=== PATIENT | male | born 1955 | race Hispanic/Latino ===

== ENCOUNTER 2018-03-25 09:43 | Inpatient (IN) | payer BC ==
[2018-03-25] MEDS ORDERED: Sodium Chloride 0.9% 1,000 ML IV ONE (11:01)
[2018-03-25 11:26] LABS: BASO % 0.4 % (0.0-2.0); EOS % 0.3 % (0.0-4.0); HEMOGLOBIN 11.9 g/dL (12.0-18.0); LYMPH % 17.3 % (20.0-40.0); MEAN CELL VOLUME 84.7 fL (80.0-94.0); MEAN CORPUSCULAR HEMOGLOBIN 30.6 pg (27.0-31.0); MEAN CORPUSCULAR HGB CONC 36.1 g/dL (33.0-37.0); MEAN PLATELET VOLUME 7.8 fL (7.2-11.7); MONO # 0.5 K/uL (0.0-0.8); MONO % 7.6 % (0.0-10.0); NEUT # 4.5 K/uL (1.8-7.0); NEUT % 74.4 % (50.0-75.0); NRBC % 0.1 % (0.0-2.0); RBC 3.89 Mil/uL (4.40-5.90); RED CELL DISTRIBUTION WIDTH 12.8 % (11.5-14.5)
[2018-03-25 11:32] LABS: ALB/GLOB RATIO 1.2 (1.0-2.1); ALBUMIN 3.7 g/dL (3.5-5.0); ALT/SGPT 22 U/L (21-72); AST/SGOT 19 U/L (17-59); BLOOD UREA NITROGEN 18 mg/dL (9-20); CALCIUM 8.8 mg/dl (8.6-10.4); GFR AFRICAN-AMERICAN > 60; GFR NON-AFRICAN AMERICAN > 60; LIPASE 16 U/L (23-300)
[2018-03-25 11:41] LABS: B-TYPE NATRIURETIC PEPTIDE 427 pg/mL (0-900)
[2018-03-25] MEDS ORDERED: Sodium Chloride 0.9% 1,000 ML ONE (11:57)
--- NOTE | 2018-03-25 12:02 | C.PDOC ---
History Of Present Illness 62-year-old male, presents to the emergency department accompanied by with complaints of feeling light-headed, generalized weakness, nausea and non-bloody/ watery diarrhea. Patient notes symptoms have been ongoing for one week. States he had a fever three days ago which has now resolved. Patient denies vomiting, back pain, chest pain, shortness of breath, loss of consciousness or any other associated symptoms. No other complaints at this time. Time Seen by Provider: 03/25/18 10:40 Chief Complaint (Nursing): Dizziness/Lightheaded History Per: Patient History/Exam Limitations: no limitations Onset/Duration Of Symptoms: Days Current Symptoms Are (Timing): Still Present Severity: Moderate Past Medical History Reviewed: Historical Data, Nursing Documentation, Vital Signs Vital Signs: Last Vital Signs Temp 98.2 F 03/25/18 16:27 Pulse 84 03/25/18 16:27 Resp 20 03/25/18 16:27 BP 123/74 03/25/18 16:27 Pulse Ox 100 03/25/18 16:42 Surgical History: Denies: Pacemaker - [facility] Procedures CLOSURE SKIN & SUBCUTANEOUS NEC (03/08/02) Family History: States: No Known Family Hx - Social History Hx Tobacco Use: No Hx Alcohol Use: No Hx Substance Use: No - Immunization History Hx Tetanus Toxoid Vaccination: No Hx Influenza Vaccination: No Hx Pneumococcal Vaccination: No Review Of Systems Constitutional: Positive for: Weakness. Negative for: Fever, Chills Cardiovascular: Positive for: Light Headedness. Negative for: Chest Pain, Palpitations Respiratory: Negative for: Shortness of Breath Gastrointestinal: Positive for: Nausea, Diarrhea. Negative for: Vomiting, Abdominal Pain Musculoskeletal: Negative for: Back Pain Skin: Negative for: Rash Neurological: Negative for: Numbness, Headache Physical Exam - Physical Exam Appears: Non-toxic, Other (Dehydrated) Skin: Normal Color, Warm, Dry, No Rash Head: Atraumatic, Normacephalic Eye(s): bilateral: Normal Inspection Nose: Normal Oral Mucosa: Moist Lips: Normal Appearing Neck: Normal ROM Cardiovascular: Rhythm Regular, No Murmur Respiratory: Normal Breath Sounds, No Accessory Muscle Use Gastrointestinal/Abdominal: Bowel Sounds, Soft, No Tenderness, No Distention, No Guarding Extremity: Normal ROM, No Deformity, No Swelling Neurological/Psych: Oriented x3, Normal Speech Gait: Steady ED Course And Treatment - Laboratory Results Result Diagrams: 03/25/18 11:16 03/25/18 11:16 Lab Interpretation: No Acute Changes ECG: Interpreted By Me, Viewed By Me ECG Rhythm: Sinus Rhythm Rate From EC O2 Sat by Pulse Oximetry: 100 (RA) Pulse Ox Interpretation: Normal Medical Decision Making Medical Decision Making: Impression: dehydration, dizziness Plan: * Labs * IV NS Progress: Labs reviewed with no acute findings. Patient appears clinically dehydrated and is dizzy upon standing. [address] Reyes who wants orthostatic vital signs and call back with results Orthostatics reviewed Laying 117/74 pulse 77; Sitting 94/61 pulse 85; Standing 67/34 pulse 111 Patient went to restroom and had an episode of diarrhea with bright red blood. Rectal exam shows BRB, no tenderness or mass Call back Dr Reyes to discuss new findings and he agrees to admit patient. Disposition Counseled Patient/Family Regarding: Diagnosis, Need For Followup - Disposition Disposition: HOSPITALIZED Disposition Time: 12:40 Condition: STABLE - POA Present On Arrival: None - Clinical Impression Clinical Impression: Dehydration, Abdominal pain, Near syncope - Scribe Statement The provider has reviewed the documentation as recorded by the Scribe (Olivia Watson) All medical record entries made by the Scribe were at my direction and personally dictated by me. I have reviewed the chart and agree that the record accurately reflects my personal performance of the history, physical exam, medical decision making, and the department course for this patient. I have also personally directed, reviewed, and agree with the discharge instructions and disposition. Decision To Admit - Pt Status Changed To: Hospital Disposition Of: Inpatient - Admit Certification Admit to Inpatient:: After my assessment, the patient will require hospitalization for at least two midnights. This is because of the severity of symptoms shown, intensity of services needed, and/or the medical risk in this patient being treated as an outpatient. - InPatient: Physician Admission Certification: I certify that this patient requires 2 or more midnights of care for the following reason:: Patient is dehydrated and weak with dizziness and orthostatics positive. patient has history of colitis and also having bloody stools. - . Bed Request Type: Telemetry Admitting Physician: Hector Reyes Patient Diagnosis: Dehydration, Abdominal pain, Near syncope
--- NOTE | 2018-03-25 14:00 | RAD ---
PROCEDURE: Radiographs of the chest and abdomen (obstructive series) HISTORY: Abd Pain COMPARISON: No prior. TECHNIQUE: AP radiograph of the chest, with upright and supine radiographs of the abdomen. FINDINGS: CHEST: Lungs: Clear. Cardiovascular: Normal size heart. No pulmonary vascular congestion. Pleura: No pleural fluid. No pneumothorax. Other findings: None. ABDOMEN AND PELVIS: Bowel: Unremarkable bowel gas pattern. No evidence of mechanical obstruction. Free air: None. Bones: Unremarkable. Other findings: None. IMPRESSION: Unremarkable radiographs of chest and abdomen. No evidence of mechanical bowel obstruction.
[2018-03-25] MEDS: Sodium Chloride 0.9% 1,000 ML IV SCH (19:00)
[2018-03-25 20:33] LABS: URINE BILIRUBIN NEGATIVE (NEGATIVE); URINE BLOOD 2+ (NEGATIVE); URINE CLARITY Turbid (Clear); URINE COLOR Yellow (YELLOW); URINE GLUCOSE (UA) NORMAL (Normal); URINE LEUKOCYTE ESTERASE 2+ Leu/uL (Negative); URINE PROTEIN 2+ mg/dL (NEGATIVE); URINE UROBILINOGEN NORMAL mg/dL (0.2-1.0); WBC CLUMPS MANY /hpf
--- NOTE | 2018-03-25 21:48 | CP.PCM.HP ---
History of Present Illness - History of Present Illness History of Present Illness: Chief complaint: Syncopal attack. HPI: 62-year-old male with a history of ulcerative colitis, not taking his medications properly, adenocarcinoma of the prostate, and also severe orthostatic hypotension, and possible neuropathy, weight loss came to the emergency room with sudden onset of dizziness. Patient for the last 2-3 days not feeling well, he started having some weakness , especially upon standing up and walking and the dizziness. Patient went to work last night, and this morning he was not able to get out of the work he was feeling lightheaded, and nearly passing out. He called me this morning, and I advised him to come to the emergency room. In the emergency room patient was found to have frequent bowel movements, episodes of diarrhea, and also blood in the stools noted. He was also having mild discomfort in the lower abdominal region, no nausea vomiting. He has a good appetite. He denies any fever chills. He also having severe orthostatic hypotension noted in the emergency room. He denied any chest pain, no shortness of breath, no headache. No sore throat. No recent illness otherwise Patient was seen by neurologist for the orthostatic hypotension, diagnosed with the peripheral neuropathy, and also able to get immunoglobulin intravenously but still pending Past medical history: Ulcerative colitis, adenocarcinoma of the prostate, peripheral neuropathy orthostatic hypotension unclear etiology Allergy no known drug allergy Personal history: Non-smoker nonalcoholic Patient is working full-time , Mother had a history of liver cirrhosis Father had a history of lung cancer Review of system: 10 point review of system noted. No headache or visual symptoms. Dizziness noted, postural hypotension noted, chest pain negative, no shortness of breath, abdominal discomfort occasionally noted, recurrent blood in the stools noted and frequent bowel movements noted On examination: Vital signs stable. But severe orthostatic hypotension noted. Lying blood pressure systolic 110, standing systolic blood pressure is 70 Chest good air entry bilaterally regular heart sounds nontender abdominal pedal edema [employer] alert awake oriented 3 no functional neurological deficits Patient's labs reviewed Nonspecific Hemoglobin is 11.9 urinalysis showing evidence of 2+ protein, ketones positive, blood 2+, positive nitrates noted, WBC more than 28,000 with the LE positive many WBC clumps noted EKG showing evidence of a normal sinus rhythm, no ST-T changes noted No chest x-ray currently available No CAT scan of the abdomen available Assessment and recommendation: Patient is a 62-year-old male with a known history of ulcerative colitis, currently noncompliant with the medication came to the office with abdominal discomfort and also significant pyuria noted. Patient also having significant urinary discomfort. Blood in the stools noted. Rectal bleeding, possible underlying ulcerative colitis exacerbation. Urinary tract infection with severe sepsis cannot be ruled out Orthostatic hypotension secondary to worsening sepsis possible. Dehydration possible Peripheral neuropathy. We will start the patient on antibiotic Cipro and Flagyl, for possible urinary tract infection as well as colitis. Will get urine culture, and blood culture GI evaluation for possible colonoscopy Evaluation by neurology for orthostatic hypotension and polyneuropathy We will continue the IV fluid at this time, PPI. And will follow-up the patient Discussed with the family regarding the prognosis. Present on Admission - Present on Admission Any Indicators Present on Admission: No History of DVT/PE: No History of Uncontrolled Diabetes: No Urinary Catheter: No Decubitus Ulcer Present: No Past Patient History - Past Social History Smoking Status: Former Smoker - CARDIAC Hx Pacemaker: No - PULMONARY Hx Respiratory Disorders: No - NEUROLOGICAL Hx Neurological Disorder: No - HEENT Hx HEENT Problems: No - RENAL Hx Chronic Kidney Disease: No - ENDOCRINE/METABOLIC Hx Endocrine Disorders: No - HEMATOLOGICAL/ONCOLOGICAL Hx Blood Transfusions: No Hx Blood Transfusion Reaction: No - INTEGUMENTARY Hx Dermatological Problems: No - MUSCULOSKELETAL/RHEUMATOLOGICAL Hx Falls: No - GASTROINTESTINAL Hx Gastrointestinal Disorders: No - GENITOURINARY/GYNECOLOGICAL Hx Genitourinary Disorders: No - PSYCHIATRIC Hx Substance Use: No - SURGICAL HISTORY Hx Surgeries: Yes - ANESTHESIA Hx Anesthesia Reactions: Yes (vomitting) Hx Malignant Hyperthermia: No Has any member of the family had a problem w/ anesthesia?: No Meds Allergies/Adverse Reactions: Allergies Allergy/AdvReac Type Severity Reaction Status Date / Time codeine Allergy Intermediate SWEATING,FE Verified 03/25/18 09:49 VERISH,VOMI TING Results - Vital Signs Recent Vital Signs: Last Vital Signs Temp 98.2 F 03/25/18 16:27 Pulse 84 03/25/18 16:27 Resp 20 03/25/18 16:27 BP 123/74 03/25/18 16:27 Pulse Ox 100 03/25/18 17:39 - Labs Result Diagrams: 03/25/18 11:16 03/25/18 11:16 Labs: Laboratory Results - last 24 hr 03/25/18 03/25/18 03/25/18 11:16 11:16 20:12 WBC 6.0 RBC 3.89 L Hgb 11.9 L D Hct 33.0 L MCV 84.7 MCH 30.6 MCHC 36.1 RDW 12.8 Plt Count 228 MPV 7.8 Neut % (Auto) 74.4 Lymph % (Auto) 17.3 L [place] % (Auto) 7.6 Eos % (Auto) 0.3 Baso % (Auto) 0.4 Neut # (Auto) 4.5 Lymph # (Auto) 1.0 [place] # (Auto) 0.5 Eos # (Auto) 0.0 Baso # (Auto) 0.0 Sodium 141 Potassium 4.3 Chloride 100 Carbon Dioxide 29 Anion Gap 16 BUN 18 Creatinine 1.2 Est GFR ( Amer) > 60 Est GFR (Non-Af Amer) > 60 Random Glucose 89 Calcium 8.8 Total Bilirubin 0.9 AST 19 ALT 22 Alkaline Phosphatase 66 NT-Pro-B Natriuret Pep 427 Total Protein 6.8 Albumin 3.7 Globulin 3.0 Albumin/Globulin Ratio 1.2 Lipase 16 L Urine Color Yellow Urine Clarity Turbid Urine pH 5.0 Ur Specific [place] 1.023 Urine Protein 2+ H Urine Glucose (UA) Normal Urine Ketones 1+ H Urine Blood 2+ H Urine Nitrate Positive H Urine Bilirubin Negative Urine Urobilinogen Normal Ur Leukocyte Esterase 2+ H Urine WBC (Auto) 39571 H Urine RBC (Auto) 402 H Urine WBC Clumps (Auto) Many H
[2018-03-25] MEDS ORDERED: Ciprofloxacin 400mg/200ml D5W 400 MG/200 ML BAG IVPB SCH (22:00)
[2018-03-25 22:32] LABS: FREE T4 1.6 ng/dL (0.78-2.19)
[2018-03-25 23:14] LABS: FOLATE > 20.0 ng/mL
[2018-03-26] MEDS: metroNIDAZOLE IV 500 mg/100 ml 500 MG/100 ML BAG IVPB SCH ×4 (00:36→21:17)
[2018-03-26] MEDS: Sodium Chloride 0.9% 1,000 ML IV SCH ×3 (03:45→22:56)
--- NOTE | 2018-03-26 07:08 | CP.PCM.CON ---
History of Present Illness - History of Present Illness History of Present Illness: CONSULT DICTATED SEVERE PAINFUL SENSORY [employer]OR AND AUTON[employer]IC NEUROPATHY NUTRITIONAL DEF./PARANOPLASTIC/INFLAMATORY/ AUTOIMMUNE /?? INFECTIOUS FALL PRECAUTION HYDRATION /SALT DIET MRI/BLOOD WORK UP EMG/NCV AN OP THANKS Past Patient History - Past Social History Smoking Status: Former Smoker - CARDIAC Hx Pacemaker: No - PULMONARY Hx Respiratory Disorders: No - NEUROLOGICAL Hx Neurological Disorder: No - HEENT Hx HEENT Problems: No - RENAL Hx Chronic Kidney Disease: No - ENDOCRINE/METABOLIC Hx Endocrine Disorders: No - HEMATOLOGICAL/ONCOLOGICAL Hx Blood Transfusions: No Hx Blood Transfusion Reaction: No - INTEGUMENTARY Hx Dermatological Problems: No - MUSCULOSKELETAL/RHEUMATOLOGICAL Hx Falls: No - GASTROINTESTINAL Hx Gastrointestinal Disorders: No - GENITOURINARY/GYNECOLOGICAL Hx Genitourinary Disorders: No - PSYCHIATRIC Hx Substance Use: No - SURGICAL HISTORY Hx Surgeries: Yes - ANESTHESIA Hx Anesthesia Reactions: Yes (vomitting) Hx Malignant Hyperthermia: No Has any member of the family had a problem w/ anesthesia?: No Meds Allergies/Adverse Reactions: Allergies Allergy/AdvReac Type Severity Reaction Status Date / Time codeine Allergy Intermediate SWEATING,FE Verified 03/25/18 09:49 VERISH,VOMI TING - Medications Medications: Current Medications Sodium Chloride (Sodium Chloride 0.9%) 1,000 mls @ 100 mls/hr IV .Q10H [facility] Last Admin: 03/26/18 03:45 Dose: Not Given Ciprofloxacin (Cipro 400mg/200ml Dsw) 400 mg in 200 mls @ 133 mls/hr IVPB Q12H ANDRIY PRN Reason: Protocol Last Admin: 03/26/18 00:35 Dose: 133 mls/hr Metronidazole (Flagyl) 500 mg in 100 mls @ 100 mls/hr IVPB Q8 ANDRIY PRN Reason: Protocol Last Admin: 03/26/18 06:39 Dose: 100 mls/hr Pantoprazole Sodium (Protonix Inj) 40 mg IVP DAILY [facility] Results - Vital Signs Recent Vital Signs: Last Vital Signs Temp 98.1 F 03/26/18 04:42 Pulse 68 03/26/18 04:42 Resp 20 03/26/18 04:42 BP 115/72 03/26/18 04:42 Pulse Ox 98 03/26/18 04:42 - Labs Result Diagrams: 03/25/18 11:16 03/25/18 11:16 Labs: Laboratory Results - last 24 hr 03/25/18 03/25/18 03/25/18 11:16 11:16 20:12 WBC 6.0 RBC 3.89 L Hgb 11.9 L D Hct 33.0 L MCV 84.7 MCH 30.6 MCHC 36.1 RDW 12.8 Plt Count 228 MPV 7.8 Neut % (Auto) 74.4 Lymph % (Auto) 17.3 L [place] % (Auto) 7.6 Eos % (Auto) 0.3 Baso % (Auto) 0.4 Neut # (Auto) 4.5 Lymph # (Auto) 1.0 [place] # (Auto) 0.5 Eos # (Auto) 0.0 Baso # (Auto) 0.0 Sodium 141 Potassium 4.3 Chloride 100 Carbon Dioxide 29 Anion Gap 16 BUN 18 Creatinine 1.2 Est GFR ( Amer) > 60 Est GFR (Non-Af Amer) > 60 Random Glucose 89 Hemoglobin A1c Calcium 8.8 Total Bilirubin 0.9 AST 19 ALT 22 Alkaline Phosphatase 66 NT-Pro-B Natriuret Pep 427 Total Protein 6.8 Albumin 3.7 Globulin 3.0 Albumin/Globulin Ratio 1.2 Lipase 16 L Vitamin B12 Folate Free T4 TSH 3rd Generation Urine Color Yellow Urine Clarity Turbid Urine pH 5.0 Ur Specific [place] 1.023 Urine Protein 2+ H Urine Glucose (UA) Normal Urine Ketones 1+ H Urine Blood 2+ H Urine Nitrate Positive H Urine Bilirubin Negative Urine Urobilinogen Normal Ur Leukocyte Esterase 2+ H Urine WBC (Auto) 65699 H Urine RBC (Auto) 402 H Urine WBC Clumps (Auto) Many H 03/25/18 03/25/18 03/25/18 21:41 21:41 21:41 WBC RBC Hgb Hct MCV MCH MCHC RDW Plt Count MPV Neut % (Auto) Lymph % (Auto) [place] % (Auto) Eos % (Auto) Baso % (Auto) Neut # (Auto) Lymph # (Auto) [place] # (Auto) Eos # (Auto) Baso # (Auto) Sodium Potassium Chloride Carbon Dioxide Anion Gap BUN Creatinine Est GFR ( Amer) Est GFR (Non-Af Amer) Random Glucose Hemoglobin A1c 4.7 Calcium Total Bilirubin AST ALT Alkaline Phosphatase NT-Pro-B Natriuret Pep Total Protein Albumin Globulin Albumin/Globulin Ratio Lipase Vitamin B12 710 Folate > 20.0 Free T4 1.60 TSH 3rd Generation 1.40 Urine Color Urine Clarity Urine pH Ur Specific [place] Urine Protein Urine Glucose (UA) Urine Ketones Urine Blood Urine Nitrate Urine Bilirubin Urine Urobilinogen Ur Leukocyte Esterase Urine WBC (Auto) Urine RBC (Auto) Urine WBC Clumps (Auto)
[2018-03-26] MEDS ORDERED: Iohexol 240 (50 ml) PO ONE (08:00)
--- NOTE | 2018-03-26 13:45 | CP.PCM.CON ---
<Vignesh Bazan - Last Filed: 03/26/18 13:37> History of Present Illness - History of Present Illness History of Present Illness: Initial GI Consult Note - Alma Bazan PGY2 Patient is a 62yo male with past medical history of ulcerative colitis (non- compliant), Prostate Ca, orthostatic hypotension that presented [facility] with c/o weakness, lethargy and dizziness that started 3 days prior. He reports that he has also been having frequent bloody bowel movements with mild suprapubic abdominal pain however denies nausea/vomiting. Prior to this episode, he reports that he was in his usual state of health and had no blood in the stool. He denied recent antibiotic use, travel however admitted to exposure of sick customers at work. He otherwise has had good appetite with no fevers or chills. GI consulted for evaluation of GI bleed. 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, esophagitis, gastritis, duodenitis; Colonoscopy 12/27: Rectal, sigmoid and Descending colon bleeding and mucosal friability, pathology significant for IBD likely ulcerative colitis Past Patient History - Past Social History Smoking Status: Former Smoker - CARDIAC Hx Pacemaker: No - PULMONARY Hx Respiratory Disorders: No - NEUROLOGICAL Hx Neurological Disorder: No - HEENT Hx HEENT Problems: No - RENAL Hx Chronic Kidney Disease: No - ENDOCRINE/METABOLIC Hx Endocrine Disorders: No - HEMATOLOGICAL/ONCOLOGICAL Hx Blood Transfusions: No Hx Blood Transfusion Reaction: No - INTEGUMENTARY Hx Dermatological Problems: No - MUSCULOSKELETAL/RHEUMATOLOGICAL Hx Falls: No - GASTROINTESTINAL Hx Gastrointestinal Disorders: No - GENITOURINARY/GYNECOLOGICAL Hx Genitourinary Disorders: No - PSYCHIATRIC Hx Substance Use: No - SURGICAL HISTORY Hx Surgeries: Yes - ANESTHESIA Hx Anesthesia Reactions: Yes (vomitting) Hx Malignant Hyperthermia: No Has any member of the family had a problem w/ anesthesia?: No Meds Allergies/Adverse Reactions: Allergies Allergy/AdvReac Type Severity Reaction Status Date / Time codeine Allergy Intermediate SWEATING,FE Verified 03/25/18 09:49 VERISH,VOMI TING - Medications Medications: Current Medications Sodium Chloride (Sodium Chloride 0.9%) 1,000 mls @ 100 mls/hr IV .Q10H [facility] Last Admin: 03/26/18 03:45 Dose: Not Given Metronidazole (Flagyl) 500 mg in 100 mls @ 100 mls/hr IVPB Q8 ANDRIY PRN Reason: Protocol Last Admin: 03/26/18 06:39 Dose: 100 mls/hr Ciprofloxacin (Cipro 400mg/200ml Dsw) 400 mg in 200 mls @ 133 mls/hr IVPB Q12H ANDRIY PRN Reason: Protocol Mesalamine (Rowasa Enema) 4 gm RC TID [facility] Mesalamine (Delzicol Dr) 800 mg PO TID ANDRIY Pantoprazole Sodium (Protonix Inj) 40 mg IVP DAILY [facility] Last Admin: 03/26/18 09:11 Dose: 40 mg Physical Exam - Constitutional Appears: No Acute Distress - Head Exam Head Exam: ATRAUMATIC, NORMOCEPHALIC - Eye Exam Eye Exam: EOMI Pupil Exam: PERRL - ENT Exam ENT Exam: Mucous Membranes Moist - Neck Exam Neck exam: Positive for: Normal Inspection - Respiratory Exam Respiratory Exam: Clear to Auscultation Bilateral. absent: Rales, Rhonchi, Wheezes - Cardiovascular Exam Cardiovascular Exam: +S1, +S2. absent: Gallop, JVD, Rubs - GI/Abdominal Exam GI & Abdominal Exam: Soft. absent: Distended, Firm, Guarding, Mass, Rebound, Tenderness - Rectal Exam Additional comments: rectal notable for brown stool - Neurological Exam Neurological exam: Alert, CN II-XII Intact, Oriented x3 - Psychiatric Exam Psychiatric exam: Normal Affect, Normal Mood - Skin Skin Exam: Dry, Intact, Normal Color, Warm Results - Vital Signs Recent Vital Signs: Last Vital Signs Temp 98.0 F 03/26/18 07:30 Pulse 72 03/26/18 12:00 Resp 18 03/26/18 07:30 BP 113/69 03/26/18 07:30 Pulse Ox 97 03/26/18 07:30 - Labs Result Diagrams: 03/25/18 11:16 03/25/18 11:16 Labs: Laboratory Results - last 24 hr 03/25/18 03/25/18 03/25/18 20:12 21:41 21:41 Hemoglobin A1c 4.7 Vitamin B12 Folate Free T4 1.60 TSH 3rd Generation 1.40 Urine Color Yellow Urine Clarity Turbid Urine pH 5.0 Ur Specific [place] 1.023 Urine Protein 2+ H Urine Glucose (UA) Normal Urine Ketones 1+ H Urine Blood 2+ H Urine Nitrate Positive H Urine Bilirubin Negative Urine Urobilinogen Normal Ur Leukocyte Esterase 2+ H Urine WBC (Auto) 39422 H Urine RBC (Auto) 402 H Urine WBC Clumps (Auto) Many H 03/25/18 21:41 Hemoglobin A1c Vitamin B12 710 Folate > 20.0 Free T4 TSH 3rd Generation Urine Color Urine Clarity Urine pH Ur Specific [place] Urine Protein Urine Glucose (UA) Urine Ketones Urine Blood Urine Nitrate Urine Bilirubin Urine Urobilinogen Ur Leukocyte Esterase Urine WBC (Auto) Urine RBC (Auto) Urine WBC Clumps (Auto) Assessment & Plan - Assessment and Plan (Free Text) Plan: 62yo male with history of ulcerative colitis (non-complaint), prostate ca, orthostatic hypotension presents c/o lethargy, weakness and dizziness for the past 3 days 1. Weakness/lethargy 2. Ulcerative colitis flair 3. Orthostatic hypotension 4. Hx of prostate ca -Started patient on mesalamine PO and RC TID for active UC flair, discussed important of medication compliance and follow up with his outpatient GI, Dr. Odell -Pending workup to r/o infectious etiologies -Continue IV antibiotics as ordered -f/u neurology recommendations for orthostatic hypotension -Stool culture, fecal calprotectin, ova/parasites, fecal leukocytes pending Patient seen and case discussed/reviewed with attending, Dr. Waller <Vasiliy Waller - Last Filed: 03/26/18 16:51> Meds - Medications Medications: Current Medications Sodium Chloride (Sodium Chloride 0.9%) 1,000 mls @ 100 mls/hr IV .Q10H [facility] Last Admin: 03/26/18 14:00 Dose: 100 mls/hr Metronidazole (Flagyl) 500 mg in 100 mls @ 100 mls/hr IVPB Q8 ANDRIY PRN Reason: Protocol Last Admin: 03/26/18 15:35 Dose: 100 mls/hr Ciprofloxacin (Cipro 400mg/200ml Dsw) 400 mg in 200 mls @ 133 mls/hr IVPB Q12H ANDRIY PRN Reason: Protocol Last Admin: 03/26/18 16:29 Dose: 133 mls/hr Mesalamine ([place] Enema) 4 gm RC TID [facility] Mesalamine (Delzicol Dr) 800 mg PO TID [facility] Pantoprazole Sodium (Protonix Inj) 40 mg IVP DAILY [facility] Last Admin: 03/26/18 09:11 Dose: 40 mg Results - Vital Signs Recent Vital Signs: Last Vital Signs Temp 98.0 F 03/26/18 07:30 Pulse 72 03/26/18 12:00 Resp 18 03/26/18 07:30 BP 113/69 03/26/18 07:30 Pulse Ox 97 03/26/18 07:30 - Labs Result Diagrams: 03/25/18 11:16 03/25/18 11:16 Labs: Laboratory Results - last 24 hr 03/25/18 03/25/18 03/25/18 20:12 21:41 21:41 Hemoglobin A1c 4.7 Vitamin B12 Folate Free T4 1.60 TSH 3rd Generation 1.40 Urine Color Yellow Urine Clarity Turbid Urine pH 5.0 Ur Specific [place] 1.023 Urine Protein 2+ H Urine Glucose (UA) Normal Urine Ketones 1+ H Urine Blood 2+ H Urine Nitrate Positive H Urine Bilirubin Negative Urine Urobilinogen Normal Ur Leukocyte Esterase 2+ H Urine WBC (Auto) 61347 H Urine RBC (Auto) 402 H Urine WBC Clumps (Auto) Many H 03/25/18 21:41 Hemoglobin A1c Vitamin B12 710 Folate > 20.0 Free T4 TSH 3rd Generation Urine Color Urine Clarity Urine pH Ur Specific [place] Urine Protein Urine Glucose (UA) Urine Ketones Urine Blood Urine Nitrate Urine Bilirubin Urine Urobilinogen Ur Leukocyte Esterase Urine WBC (Auto) Urine RBC (Auto) Urine WBC Clumps (Auto) Attending/Attestation - Attestation I have personally seen and examined this patient.: Yes I have fully participated in the care of the patient.: Yes I have reviewed all pertinent clinical information: Yes Notes (Text): 03/26/18 16:50 62 year old male with h/o left sided uc, non-compliance a/w bloody diarrhea. Stool studies to r/o infectious colitis. Recommend topical 5-asa therapy orally and per enema.
--- NOTE | 2018-03-26 13:54 | MRI ---
PROCEDURE: MRI of the brain dated 03/26/2018 HISTORY: brain stem pathology COMPARISON: The the TECHNIQUE: Multiplanar, multisequence MR images of the brain were obtained without intravenous contrast enhancement. FINDINGS: HEMORRHAGE: No acute parenchymal, subarachnoid or extra-axial hemorrhage. No evidence of hemosiderin deposition identified on gradient echo weighted DWI: No evidence of an acute or early subacute infarction seen on diffusion imaging. . BRAIN PARENCHYMA: Minor slightly confluent prolonged T2 signal changes noted in the periventricular white matter most pronounced in the perifrontal horn regions consistent with chronic sequela of small vessel disease. There are a few tiny foci of increased T2 signal scattered about the deep and subcortical white matter both cerebral hemispheres nonspecific most likely though also probably represent minimal chronic sequela of small vessel disease. Changes probably represent minor chronic on small vessel disease as well. Mild generalized volume loss. VENTRICLES: No obstructive hydrocephalus. CRANIUM: Calvarium otherwise appears intact not withstanding presumed underpneumatized mastoid air complex. ORBITS: Grossly unremarkable. PARANASAL SINUSES/MASTOIDS: Frontal sinuses appear underpneumatized hypoplastic. The remaining visualized paranasal sinuses otherwise appear well-developed. Minimal mucosal thickening within the maxillary antra is well as a few ethmoid air cells. The mastoid air complexes appear poorly pneumatized (right less pneumatized than the left), with what probably represents some marrow signal due to incomplete pneumatization. Follow-up nonemergent CT scan of the brain recommended to confirm. VASCULAR SYSTEM: Visualized major vascular flow voids at skull base patent. OTHER FINDINGS: None. IMPRESSION: No evidence of acute intracranial hemorrhage or infarct. Findings consistent with minimal chronic microvascular ischemic disease as described. Mild generalized volume loss. Apparent under pneumatization of the mastoid air complexes right more significant than left. Follow-up nonemergent CT scan could confirm.
[2018-03-26] MEDS ORDERED: Iodixanol 320 MG/ML 100 ML BOTTLE IV ONE (14:36)
--- NOTE | 2018-03-26 15:13 | CT ---
PROCEDURE: CT Abdomen and Pelvis with contrast HISTORY: colitis COMPARISON: None. TECHNIQUE: Contrast dose: 100 mL Visipaque 320 Radiation dose: Total exam DLP = 388.5 mGy-cm. This CT exam was performed using one or more of the following dose reduction techniques: Automated exposure control, adjustment of the mA and/or kV according to patient size, and/or use of iterative reconstruction technique. FINDINGS: LOWER THORAX: A few peripheral nodular densities in the inferior left lower lobe (series 3, image 16), likely infectious/inflammatory. LIVER: Mild periportal edema. No gross lesion or ductal dilatation. GALLBLADDER AND BILE DUCTS: Unremarkable. PANCREAS: Unremarkable. No gross lesion or ductal dilatation. SPLEEN: 1.3 cm splenic cyst. ADRENALS: Unremarkable. No mass. KIDNEYS AND URETERS: Unremarkable. No hydronephrosis. No solid mass. VASCULATURE: Unremarkable. No aortic aneurysm. BOWEL: Descending colonic wall thickening and mild rectal wall thickening. No obstruction. APPENDIX: No findings to suggest acute appendicitis. PERITONEUM: Unremarkable. Trace perihepatic ascites. No free air. LYMPH NODES: Unremarkable. No enlarged lymph nodes. BLADDER: Bladder wall thickening with trabeculations. REPRODUCTIVE: Enlarged prostate. BONES: No acute fracture. OTHER FINDINGS: None. IMPRESSION: Descending colonic and mild rectal wall thickening compatible with colitis. Bladder wall thickening with trabeculations, likely related to chronic bladder outlet obstruction, with superimposed cystitis not excluded. Clinical correlation is recommended. A few peripheral nodular densities in the inferior left lower lobe, likely infectious/ inflammatory.
[2018-03-26] MEDS: Ciprofloxacin 400mg/200ml D5W 400 MG/200 ML BAG IVPB SCH (16:29)
--- NOTE | 2018-03-26 17:47 | CARD ---
APPROVED REPORT EKG Measurement Heart [id number] [place] [id number] [id number] <Conclusion> Normal sinus rhythm Normal ECG
--- NOTE | 2018-03-26 17:48 | CARD ---
APPROVED REPORT EKG Measurement Heart [id number] [place] [id number] [id number] <Conclusion> Normal sinus rhythm Normal ECG
[2018-03-26 17:53] LABS: C DIFF TOXIN A B NEGATIVE (NEGATIVE)
[2018-03-26 19:41] LABS: FECAL LEUKOCYTES NEGATIVE (NEGATIVE)
[2018-03-27] MEDS: Ciprofloxacin 400mg/200ml D5W 400 MG/200 ML BAG IVPB SCH ×2 (03:36→16:12)
[2018-03-27] MEDS: metroNIDAZOLE IV 500 mg/100 ml 500 MG/100 ML BAG IVPB SCH ×3 (05:32→21:49)
--- NOTE | 2018-03-27 07:13 | CON ---
DATE: 03/26/2018 ATTENDING PHYSICIAN: Hector Reyes MD LOCATION: The patient is in room 653, bed A. REASON FOR CONSULTATION: Unsteady gait. CHIEF COMPLAINT: The patient was brought into [facility] with a history of generalized weakness and inability to walk good. From neurological point of view, I was called in to evaluate him for further evaluation. HISTORY OF PRESENT ILLNESS: Mr. Monty Agudelo is a 62-year-old cachectic right-handed male presenting with a week history of increasing tiredness, inability to get up and walk himself. No history of fall. No history of loss of consciousness. No history of involuntary movements associating with this problem. Whenever he sit to stand up and during walk when he turns, he feels dizzy and losing his balance. PAST MEDICAL HISTORY: Significant for noncompliant with medication for his underlying ulcerative colitis, adenocarcinoma of the prostate, and peripheral neuropathy. ALLERGIES: NO KNOWN ALLERGIES. PERSONAL HISTORY: Denies smoking or alcohol use. REVIEW OF SYSTEMS: A 12-point system being reviewed from neuro, unsteady gait. MEDICATIONS: Cipro, Flagyl, Protonix, and IV fluids. PHYSICAL EXAMINATION: VITAL SIGNS: Blood pressure 115/72, mean arterial pressure of 86, respiratory rate 20, temperature 98.1 with a pulse rate 68 regular. On sitting up, pulse rate is 90 and standing up pulse rate remains unchanged 92 per minute. NECK: Supple. No carotid bruits. HEART: Sounds regular. CHEST: Fair air entry. EXTREMITIES: No edema in legs. NEUROLOGIC EXAMINATION: Mental status examination: He is awake, alert, and oriented to person, place and time. Mentation is normal. No confabulation. No depression. Speech is clear. Cranial nerve examination: Visual field intact. Pupils reactive to light. Extraocular movement normal. No nystagmus. No facial sensory deficit. No facial asymmetry. Hearing is normal. Tongue is midline. Good gag. Motor examination: On outstretched hand with eyes closed, no drift noted. Power is symmetric on either side. Muscle atrophy noted on both the proximal the distal muscle groups. No fasciculation noted. On outstretched hand with eyes closed, sensory tremor noted. Deep tendon reflexes are absent. Plantars are downgoing. Sensory examination: Significantly decreased pinprick, light touch, vibration and position sense on both sides. Coordination: [id number] test, dysmetria proportionate to his neuropathy. Gait: On standing up, he was broad-based. Romberg sign positive. Tandem, he could not able to do it. WORKUP: WBC hemoglobin 11.9, hematocrit 33, platelet 228. Sodium 141, potassium 4.3, chloride 100, bicarbonate 29, BUN 18, creatinine is 1.2 with GFR more than 60. Lipase is 16. B12 of 710, folate more than 20. TSH 1.40. Urine shows 2 proteinuria, 1+ ketonuria, 2+ blood and leukocytes enormous. CONCLUSION: Mr. Monty Agudelo as per neurological examination presenting with severe painful sensory motor autonomic neuropathy. Considering his risk factors, paraneoplastic syndrome/nutritional deficiency/electrolyte imbalance, inflammatory process or autoimmune disease should be ruled out. Infectious cause at this time I doubt it. The patient should also have workup for the central cause for his underlying autonomic dysfunction. RECOMMENDATION: 1. Hydration. 2. Correct the electrolytes. 3. Out of bed and ambulation only with assistance and supervision. 4. MRI of the brain. Blood workup as per the order. 5. The patient definitely need electrodiagnostic studies including nerve conduction study and electromyography, which can be done as outpatient. The patient's condition has been extensively discussed, agreed with my plan of management. The patient will be followed closely while he is in the hospital. Chip Lockett MD [email or web address]
--- NOTE | 2018-03-27 08:51 | CP.PCM.PN ---
<Vignesh Bazan - Last Filed: 03/27/18 08:47> Subjective - Date & Time of Evaluation Date of Evaluation: 03/27/18 Time of Evaluation: 08:47 - Subjective Subjective: GI progress note - Alma Bazan PGY2 Patient seen and examined at bedside this morning. No acute overnight events or new complaints reported. He had a total of 2 bowel movements yesterday of which 1 was reportedly bloody. No bowel movements as of yet this morning. Tolerating PO intake without complaints. Denies abdominal pain, nausea, vomiting. 12point ROS as per above otherwise negative. Objective - Vital Signs/Intake and Output Vital Signs (last 24 hours): Temp Pulse Resp BP Pulse Ox 97.7 F 82 18 108/66 97 03/27/18 08:35 03/27/18 08:35 03/27/18 08:35 03/27/18 08:35 03/27/18 08:35 - Medications Medications: Current Medications Sodium Chloride (Sodium Chloride 0.9%) 1,000 mls @ 100 mls/hr IV .Q10H [facility] Last Admin: 03/26/18 22:56 Dose: Not Given Metronidazole (Flagyl) 500 mg in 100 mls @ 100 mls/hr IVPB Q8 [facility] PRN Reason: Protocol Last Admin: 03/27/18 05:32 Dose: 100 mls/hr Ciprofloxacin (Cipro 400mg/200ml Dsw) 400 mg in 200 mls @ 133 mls/hr IVPB Q12H [facility] PRN Reason: Protocol Last Admin: 03/27/18 03:36 Dose: 133 mls/hr Mesalamine (Rowasa Enema) 4 gm RC HS [facility] Last Admin: 03/26/18 22:22 Dose: Not Given Mesalamine (Delzicol Dr) 800 mg PO TID [facility] Last Admin: 03/26/18 17:50 Dose: 800 mg Ondansetron HCl (Zofran Inj) 4 mg IVP Q8 PRN PRN Reason: Nausea/Vomiting Last Admin: 03/26/18 22:12 Dose: 4 mg Pantoprazole Sodium (Protonix Inj) 40 mg IVP DAILY [facility] Last Admin: 03/26/18 09:11 Dose: 40 mg - Labs Labs: 03/25/18 11:16 03/25/18 11:16 - Constitutional Appears: No Acute Distress - Head Exam Head Exam: ATRAUMATIC, NORMOCEPHALIC - Eye Exam Eye Exam: EOMI Pupil Exam: PERRL - ENT Exam ENT Exam: Mucous Membranes Moist - Respiratory Exam Respiratory Exam: Clear to Ausculation Bilateral. absent: Rales, Rhonchi, Wheezes - Cardiovascular Exam Cardiovascular Exam: +S1, +S2. absent: Gallop, JVD, Rubs - GI/Abdominal Exam GI & Abdominal Exam: Soft. absent: Distended, Firm, Guarding, Rigid, Tenderness , Rebound - Neurological Exam Neurological Exam: Alert, Awake, CN II-XII Intact, Normal Gait, Oriented x3 - Psychiatric Exam Psychiatric exam: Normal Affect, Normal Mood - Skin Skin Exam: Dry, Intact, Normal Color, Warm Assessment and Plan - Assessment and Plan (Free Text) Plan: 62yo male with history of ulcerative colitis (non-complaint), prostate ca, orthostatic hypotension presents c/o lethargy, weakness and dizziness 1. Weakness/lethargy 2. Ulcerative colitis flare 3. Orthostatic hypotension 4. Hx of prostate ca -Recommend continuing with mesalamine PO and rectally for active UC flare -Counseled patient on importance of medication compliance as well as follow up with outpatient GI -Patient will require repeat colonoscopy as an outpatient for UC surveillance -Cdiff negative -Continue IV antibiotics as ordered -f/u neurology recommendations for orthostatic hypotension -Stool culture and fecal calprotectin pending Patient seen and case discussed/reviewed with attending, Dr. Garner <Brandon Garner - Last Filed: 03/27/18 11:50> Objective - Vital Signs/Intake and Output Vital Signs (last 24 hours): Temp Pulse Resp BP Pulse Ox 97.7 F 82 18 108/66 97 03/27/18 08:35 03/27/18 08:35 03/27/18 08:35 03/27/18 08:35 03/27/18 08:35 - Medications Medications: Current Medications Sodium Chloride (Sodium Chloride 0.9%) 1,000 mls @ 100 mls/hr IV .Q10H [facility] Last Admin: 03/27/18 11:19 Dose: 100 mls/hr Metronidazole (Flagyl) 500 mg in 100 mls @ 100 mls/hr IVPB Q8 [facility] PRN Reason: Protocol Last Admin: 03/27/18 05:32 Dose: 100 mls/hr Ciprofloxacin (Cipro 400mg/200ml Dsw) 400 mg in 200 mls @ 133 mls/hr IVPB Q12H [facility] PRN Reason: Protocol Last Admin: 03/27/18 03:36 Dose: 133 mls/hr Mesalamine (Rowasa Enema) 4 gm RC HS [facility] Last Admin: 03/26/18 22:22 Dose: Not Given Mesalamine (Delzicol Dr) 800 mg PO TID [facility] Last Admin: 03/27/18 09:55 Dose: 800 mg Ondansetron HCl (Zofran Inj) 4 mg IVP Q8 PRN PRN Reason: Nausea/Vomiting Last Admin: 03/26/18 22:12 Dose: 4 mg Pantoprazole Sodium (Protonix Inj) 40 mg IVP DAILY [facility] Last Admin: 03/27/18 09:55 Dose: 40 mg - Labs Labs: 03/25/18 11:16 03/25/18 11:16 Attending/Attestation - Attestation I have personally seen and examined this patient.: Yes I have fully participated in the care of the patient.: Yes I have reviewed all pertinent clinical information, including history, physical exam and plan: Yes Notes (Text): 03/27/18 11:47 I have seen and examined patient with GI fellow and medical receptionist biller. No acute events overnight, his abdominal pain has resolved and he did not have any bowel movements overnight. Tolerating PO diet without difficulty. Review of vitals from today are normal. Ulcerative colitis - previously noted to be left sided History of prostate CA UTI Orthostatic hypotension - polyneuropathy - Diet as tolerated - Continue with antibiotic therapy, blood cultures negative to date - H/H stable, continue to monitor - Continue with oral and topical mesalamine therapy - Patient would benefit from additional outpatient follow up along with colonoscopy to determine extent and severity of disease. No further planned GI intervention, will sign off case. Please reconsult as necessary, thank you.
[2018-03-27] MEDS: Sodium Chloride 0.9% 1,000 ML IV SCH ×3 (10:12→21:51)
[2018-03-27 11:34] LABS: ALPHA-1-GLOBULIN (PEP) 0.3 g/dL (0.2-0.3)
[2018-03-27 11:39] LABS: SQUAMOUS EPITHIAL < 1 /hpf (0-5); URINE BACTERIA RARE (<OCC); URINE BILIRUBIN NEGATIVE (NEGATIVE); URINE BLOOD 1+ (NEGATIVE); URINE CLARITY Hazy (Clear); URINE COLOR Yellow (YELLOW); URINE GLUCOSE (UA) NORMAL (Normal); URINE LEUKOCYTE ESTERASE 3+ Leu/uL (Negative); URINE PROTEIN NEGATIVE (NEGATIVE); URINE UROBILINOGEN NORMAL mg/dL (0.2-1.0)
[2018-03-27 12:08] LABS: BASO # 0.1 K/uL (0.0-0.2); BASO % 1.1 % (0.0-2.0); EOS # 0.1 K/uL (0.0-0.7); EOS % 0.8 % (0.0-4.0); HEMOGLOBIN 10.9 g/dL (12.0-18.0); LYMPH % 14.6 % (20.0-40.0); MEAN CORPUSCULAR HGB CONC 34.5 g/dL (33.0-37.0); MEAN PLATELET VOLUME 7.5 fL (7.2-11.7); MONO # 0.4 K/uL (0.0-0.8); MONO % 6.2 % (0.0-10.0); NEUT # 5.1 K/uL (1.8-7.0); NEUT % 77.3 % (50.0-75.0); RBC 3.77 Mil/uL (4.40-5.90); RED CELL DISTRIBUTION WIDTH 12.6 % (11.5-14.5); WHITE BLOOD COUNT 6.6 K/uL (4.8-10.8)
[2018-03-27 12:36] LABS: ALB/GLOB RATIO 1.1 (1.0-2.1); ALBUMIN 2.8 g/dL (3.5-5.0); ALT/SGPT 30 U/L (21-72); AST/SGOT 25 U/L (17-59); BLOOD UREA NITROGEN 5 mg/dL (9-20); CALCIUM 7.8 mg/dl (8.6-10.4); GFR AFRICAN-AMERICAN > 60; GFR NON-AFRICAN AMERICAN > 60
[2018-03-27] MEDS ORDERED: Potassium Chloride 20 mEq ER Tab PO ONE (14:00)
--- NOTE | 2018-03-27 17:11 | PN ---
DATE: 03/27/2018 TIME OF EVALUATION: 7:05 a.m. NEUROLOGICAL PROBLEM: Severe painful sensory motor autonomic neuropathy. PHYSICAL EXAMINATION: VITAL SIGNS: Blood pressure 118/77, mean arterial pressure of 90, respiratory rate 18, temperature 97.9 with a pulse rate of 84. GENERAL: The patient comfortably lying down in the bed. No acute episodes. No falls. Getting physical therapy. NEUROLOGICAL: Examination consistent with severe sensory motor neuropathy. WORKUP: MRI of the brain shows small vessel disease. His recent blood workup: Total protein 5.5, which is low and the lipase is 16. Urine shows 2+ hematuria and stool is positive for occult blood. RPR nonreactive. Rest of the workup is pending. IMPRESSION AND PLAN: The patient should get out of the bed, fall precaution, physical therapy should be continued. When medically stable, the patient can be discharged and he should have nerve condition studies and electromyography to assess extent of his neuropathy. At present, the patient is not complaining of any lightheadedness and there is no objective evidence of orthostatic . Continue hydration. For stroke prophylaxis, antiplatelets cannot be given at this time because of his existing hematuria as well as occult blood in the stool. The patient will be followed during the hospitalization. Chip Lockett MD
--- NOTE | 2018-03-27 18:19 | CP.PCM.PN ---
Subjective - Date & Time of Evaluation Date of Evaluation: 03/26/18 Time of Evaluation: 18:18 - Subjective Subjective: Patient is now complaining of increasing nausea, and no vomiting. Not feeling well. Retching. Abdominal pain. Still having episodes of diarrhea occasionally. Urine is still concentrated, and cloudy, but slight improvement noted On examination: Vital signs are stable, but orthostasis positive Chest good air entry regular heart sounds nontender abdomen no pedal edema Labs reviewed Patient was seen by teachers assistant, and neurologist today. CAT scan results pending Assessment and recommendation: 62-year-old male with a history of ulcerative colitis, failed outpatient treatment. Also noncompliance with the medication admitted with the pyuria, acute possible exacerbation of ulcerative colitis. Patient is currently on sulfasalazine. Spoke to the teachers assistant. Patient will need outpatient colonoscopy screening, and evaluation. Underlying fistula cannot be ruled out. We will continue the current treatment. We will follow the patient. Objective - Vital Signs/Intake and Output Vital Signs (last 24 hours): Temp Pulse Resp BP Pulse Ox 98.1 F 72 20 135/80 99 03/27/18 15:53 03/27/18 15:53 03/27/18 15:53 03/27/18 15:53 03/27/18 15:53 Intake and Output: 03/27/18 03/27/18 06:59 18:59 Intake Total 1100 Balance 1100 - Medications Medications: Current Medications Sodium Chloride (Sodium Chloride 0.9%) 1,000 mls @ 100 mls/hr IV .Q10H [facility] Last Admin: 03/27/18 11:19 Dose: 100 mls/hr Metronidazole (Flagyl) 500 mg in 100 mls @ 100 mls/hr IVPB Q8 [facility] PRN Reason: Protocol Last Admin: 03/27/18 13:40 Dose: 100 mls/hr Ciprofloxacin (Cipro 400mg/200ml Dsw) 400 mg in 200 mls @ 133 mls/hr IVPB Q12H [facility] PRN Reason: Protocol Last Admin: 03/27/18 16:12 Dose: 133 mls/hr Mesalamine (Rowasa Enema) 4 gm RC HS [facility] Last Admin: 03/26/18 22:22 Dose: Not Given Mesalamine (Delzicol Dr) 800 mg PO TID [facility] Last Admin: 06/14/18 17:28 Dose: 800 mg Ondansetron HCl (Zofran Inj) 4 mg IVP Q8 PRN PRN Reason: Nausea/Vomiting Last Admin: 03/27/18 17:27 Dose: 4 mg Pantoprazole Sodium (Protonix Inj) 40 mg IVP DAILY [facility] Last Admin: 03/27/18 09:55 Dose: 40 mg - Labs Labs: 03/27/18 11:48 03/27/18 11:48
--- NOTE | 2018-03-27 18:22 | CP.PCM.PN ---
Subjective - Date & Time of Evaluation Date of Evaluation: 03/27/18 Time of Evaluation: 18:21 - Subjective Subjective: Patient is now complaining of increasing nausea, and no vomiting. Not feeling well. Retching. Abdominal pain. Still having episodes of diarrhea occasionally. Urine is still concentrated, and cloudy, but slight improvement noted On examination: Vital signs are stable, but orthostasis positive Chest good air entry regular heart sounds nontender abdomen no pedal edema Labs reviewed Patient was seen by spool tender, and neurologist today. CT scan of the abdomen and pelvis showing evidence of descending colon, and the rectal wall thickening. Suspected colitis. Also bladder wall thickening and ectopic lesion, possible outlet obstruction and cystitis possible. Peripheral nodular densities in the inferior left lower lobe. Likely inflammatory versus infectious. Assessment and recommendation: 62-year-old male with a history of ulcerative colitis, failed outpatient treatment. Also noncompliance with the medication admitted with the pyuria, acute possible exacerbation of ulcerative colitis. Patient is currently on sulfasalazine. Spoke to the spool tender. Patient will need outpatient colonoscopy screening, and evaluation. Pyuria, and now having urine culture showing evidence of gram-negative bacteria. We will continue the intravenous IV antibiotic ciprofloxacin. Awaiting for culture. IV fluid. Possible discharge plan tomorrow Objective - Vital Signs/Intake and Output Vital Signs (last 24 hours): Temp Pulse Resp BP Pulse Ox 98.1 F 72 20 135/80 99 03/27/18 15:53 03/27/18 15:53 03/27/18 15:53 03/27/18 15:53 03/27/18 15:53 Intake and Output: 03/27/18 03/27/18 06:59 18:59 Intake Total 1100 Balance 1100 - Medications Medications: Current Medications Sodium Chloride (Sodium Chloride 0.9%) 1,000 mls @ 100 mls/hr IV .Q10H [facility] Last Admin: 03/27/18 11:19 Dose: 100 mls/hr Metronidazole (Flagyl) 500 mg in 100 mls @ 100 mls/hr IVPB Q8 [facility] PRN Reason: Protocol Last Admin: 03/27/18 13:40 Dose: 100 mls/hr Ciprofloxacin (Cipro 400mg/200ml Dsw) 400 mg in 200 mls @ 133 mls/hr IVPB Q12H [facility] PRN Reason: Protocol Last Admin: 03/27/18 16:12 Dose: 133 mls/hr Mesalamine (Rowasa Enema) 4 gm RC HS [facility] Last Admin: 03/26/18 22:22 Dose: Not Given Mesalamine (Delzicol Dr) 800 mg PO TID [facility] Last Admin: 03/27/18 17:28 Dose: 800 mg Ondansetron HCl (Zofran Inj) 4 mg IVP Q8 PRN PRN Reason: Nausea/Vomiting Last Admin: 03/27/18 17:27 Dose: 4 mg Pantoprazole Sodium (Protonix Inj) 40 mg IVP DAILY [facility] Last Admin: 03/27/18 09:55 Dose: 40 mg - Labs Labs: 03/27/18 11:48 03/27/18 11:48
[2018-03-28] MEDS: Ciprofloxacin 400mg/200ml D5W 400 MG/200 ML BAG IVPB SCH (03:41)
[2018-03-28] MEDS: metroNIDAZOLE IV 500 mg/100 ml 500 MG/100 ML BAG IVPB SCH ×2 (06:08→13:16)
[2018-03-28] MEDS: Sodium Chloride 0.9% 1,000 ML IV SCH (09:24)
[2018-03-28 09:33] LABS: 23 KD (IGG) BAND Nonreactive
[2018-03-28 10:42] LABS: LYME IGM NEGATIVE (NEGATIVE)
[2018-03-28 12:12] LABS: LYME IGG NEGATIVE (NEGATIVE)
[2018-03-28 15:54] VITALS: RESP 20
--- NOTE | 2018-03-28 16:32 | RAD ---
HISTORY: ileus COMPARISON: No prior. FINDINGS: BOWEL: Normal bowel gas pattern. Oral contrast seen within the colon. BONES: Normal. OTHER FINDINGS: None. IMPRESSION: No active disease.
[2018-03-28] MEDS: Piperacill/Tazo 3.375gm in Dex 3.375 GM/50 ML BAG IVPB SCH (22:49)
[2018-03-29] MEDS: Piperacill/Tazo 3.375gm in Dex 3.375 GM/50 ML BAG IVPB SCH ×2 (05:33→13:46)
[2018-03-29 06:29] LABS: LYMPH # 0.6 K/uL (1.0-4.3); MONO # 0.6 K/uL (0.0-0.8)
[2018-03-29 06:47] LABS: BASO % 0.1 % (0.0-2.0); HEMOGLOBIN 12.1 g/dL (12.0-18.0); LYMPH % 4.5 % (20.0-40.0); MEAN CELL VOLUME 82.5 fL (80.0-94.0); MEAN CORPUSCULAR HEMOGLOBIN 29.2 pg (27.0-31.0); MEAN CORPUSCULAR HGB CONC 35.3 g/dL (33.0-37.0); MEAN PLATELET VOLUME 7.5 fL (7.2-11.7); NEUT # 12.9 K/uL (1.8-7.0); NEUT % 91.4 % (50.0-75.0); NRBC % 0.1 % (0.0-2.0); PLATELET COUNT 236 K/uL (130-400); RBC 4.15 Mil/uL (4.40-5.90); WHITE BLOOD COUNT 14.2 K/uL (4.8-10.8)
[2018-03-29 06:48] LABS: ALB/GLOB RATIO 1.2 (1.0-2.1); ALBUMIN 3.2 g/dL (3.5-5.0); ALT/SGPT 32 U/L (21-72); AST/SGOT 28 U/L (17-59); BLOOD UREA NITROGEN 4 mg/dL (9-20); GFR AFRICAN-AMERICAN > 60; GFR NON-AFRICAN AMERICAN > 60
[2018-03-29] MEDS ORDERED: Dextrose 5%/0.9% NS 1,000 ML IV SCH (07:00)
[2018-03-29 08:53] VITALS: TEMP 98.5
[2018-03-29 09:12] LABS: ANISOCYTOSIS SLIGHT; LYMPHOCYTE 3 % (20-40); MONOCYTE 6 % (0-10); NEUTROPHIL 91 % (50-75); PLATELET ESTIMATE NORMAL (NORMAL); TOTAL CELLS COUNTED 100; TOXIC GRANULATION PRESENT
[2018-03-29 09:13] LABS: HYPOCHROMIC SLIGHT; POLYCHROMIC SLIGHT
[2018-03-29] MEDS ORDERED: Magnesium Sulfate 1 gm in D5W 1 GM/100 ML BAG IVPB ONE (12:00)
[2018-03-29 16:44] VITALS: BP 145/85; PULSE 77; O2SAT 98
--- NOTE | 2018-03-30 07:49 | CP.PCM.DIS ---
Provider - Provider Date of Admission: 03/25/18 12:44 Attending physician: Hector Reyes MD Time Spent in preparation of Discharge (in minutes): 5 Hospital Course - Lab Results Lab Results: Micro Results 03/25/18 22:30 Blood Blood Culture - Preliminary NO GROWTH AFTER 4 DAYS 03/25/18 22:30 Blood Blood Culture - Preliminary NO GROWTH AFTER 4 DAYS 03/27/18 11:22 Urine Urine Culture - Final Gram Positive Cocci 03/26/18 16:30 Stool Stool Culture - Final NO SALMONELLA, SHIGELLA OR CAMPYLOBACTER ISOLATED. 03/26/18 05:05 Urine,Clean Catch Urine Culture - Final Gram Negative Yanick Most Recent Lab Values WBC 14.2 K/uL (4.8-10.8) H D 03/29/18 06:23 RBC 4.15 Mil/uL (4.40-5.90) L 03/29/18 06:23 Hgb 12.1 g/dL (12.0-18.0) 03/29/18 06:23 Hct 34.3 % (35.0-51.0) L 03/29/18 06:23 MCV 82.5 fL (80.0-94.0) 03/29/18 06:23 MCH 29.2 pg (27.0-31.0) 03/29/18 06:23 MCHC 35.3 g/dL (33.0-37.0) 03/29/18 06:23 RDW 13.0 % (11.5-14.5) 03/29/18 06:23 Plt Count 236 K/uL (130-400) 03/29/18 06:23 MPV 7.5 fL (7.2-11.7) 03/29/18 06:23 Neut % (Auto) 91.4 % (50.0-75.0) H 03/29/18 06:23 Lymph % (Auto) 4.5 % (20.0-40.0) L 03/29/18 06:23 [place] % (Auto) 4.0 % (0.0-10.0) 03/29/18 06:23 Eos % (Auto) 0.0 % (0.0-4.0) 03/29/18 06:23 Baso % (Auto) 0.1 % (0.0-2.0) 03/29/18 06:23 Neut # (Auto) 12.9 K/uL (1.8-7.0) H 03/29/18 06:23 Lymph # (Auto) 0.6 K/uL (1.0-4.3) L 03/29/18 06:23 [facility] # (Auto) 0.6 K/uL (0.0-0.8) 03/29/18 06:23 Eos # (Auto) 0.0 K/uL (0.0-0.7) 03/29/18 06:23 Baso # (Auto) 0.0 K/uL (0.0-0.2) 03/29/18 06:23 Neutrophils % (Manual) 91 % (50-75) H 03/29/18 06:23 Lymphocytes % (Manual) 3 % (20-40) L 03/29/18 06:23 Monocytes % (Manual) 6 % (0-10) 03/29/18 06:23 Toxic Granulation Present 03/29/18 06:23 Platelet Estimate Normal (NORMAL) 03/29/18 06:23 Polychromasia Slight 03/29/18 06:23 Hypochromasia (manual) Slight 03/29/18 06:23 Anisocytosis (manual) Slight 03/29/18 06:23 Sodium 137 mmol/L (132-148) 03/29/18 06:23 Potassium 3.4 mmol/L (3.6-5.2) L 03/29/18 06:23 Chloride 98 mmol/L (98-107) 03/29/18 06:23 Carbon Dioxide 30 mmol/L (22-30) 03/29/18 06:23 Anion Gap 13 (10-20) 03/29/18 06:23 BUN 4 mg/dL (9-20) L 03/29/18 06:23 Creatinine 0.7 mg/dL (0.8-1.5) L 03/29/18 06:23 Est GFR ( Amer) > 60 03/29/18 06:23 Est GFR (Non-Af Amer) > 60 03/29/18 06:23 Random Glucose 93 mg/dL (75-110) 03/29/18 06:23 Hemoglobin A1c 4.7 % (4.2-6.5) 03/25/18 21:41 Calcium 8.0 mg/dl (8.6-10.4) L 03/29/18 06:23 Phosphorus 3.6 mg/dL (2.5-4.5) 03/29/18 06:23 Magnesium 1.8 mg/dL (1.6-2.3) 03/29/18 06:23 Total Bilirubin 1.2 mg/dL (0.2-1.3) 03/29/18 06:23 AST 28 U/L (17-59) 03/29/18 06:23 ALT 32 U/L (21-72) 03/29/18 06:23 Alkaline Phosphatase 60 U/L (38-126) 03/29/18 06:23 NT-Pro-B Natriuret Pep 427 pg/mL (0-900) 03/25/18 11:16 Total Protein 5.8 g/dL (6.3-8.3) L 03/29/18 06:23 Total Protein (PEP) 5.5 g/dL (6.1-8.1) L 03/26/18 07:14 Albumin 3.2 g/dL (3.5-5.0) L 03/29/18 06:23 Albumin (PEP) 3.0 g/dL (3.8-4.8) L 03/26/18 07:14 Globulin 2.6 gm/dL (2.2-3.9) 03/29/18 06:23 Albumin/Globulin Ratio 1.2 (1.0-2.1) 03/29/18 06:23 Okgwb-6-Xplgyujxk 0.3 g/dL (0.2-0.3) 03/26/18 07:14 Pujnc-8-Qtkujjjlo 0.7 g/dL (0.5-0.9) 03/26/18 07:14 Dkkw-6-Tfewtqtb 0.3 g/dL (0.4-0.6) L 03/26/18 07:14 Yjio-4-Wicbgefw 0.3 g/dL (0.2-0.5) 03/26/18 07:14 Gamma Globulins 0.8 g/dL (0.8-1.7) 03/26/18 07:14 Abnorm Protein Band 1 TEST NOT PERFORMED 03/26/18 07:14 Abnorm Protein Band 2 TEST NOT PERFORMED 03/26/18 07:14 Abnorm Protein Band 3 TEST NOT PERFORMED 03/26/18 07:14 Lipase 16 U/L (23-300) L 03/25/18 11:16 Angiotensin Convert Enz 23 U/L (9-67) 03/26/18 07:14 Vitamin B12 710 pg/mL (239-931) 03/25/18 21:41 Folate > 20.0 ng/mL 03/25/18 21:41 Free T4 1.60 ng/dL (0.78-2.19) 03/25/18 21:41 TSH 3rd Generation 1.40 mIU/L (0.46-4.68) 03/25/18 21:41 Urine Color Yellow (YELLOW) 03/27/18 11:22 Urine Clarity Hazy (Clear) 03/27/18 11:22 Urine pH 6.0 (5.0-8.0) 03/27/18 11:22 Ur Specific [place] 1.008 (1.003-1.030) 03/27/18 11:22 Urine Protein Negative mg/dL (NEGATIVE) 03/27/18 11:22 Urine Glucose (UA) Normal mg/dL (Normal) 03/27/18 11:22 Urine Ketones Trace mg/dL (NEGATIVE) 03/27/18 11:22 Urine Blood 1+ (NEGATIVE) H 03/27/18 11:22 Urine Nitrate Negative (NEGATIVE) 03/27/18 11:22 Urine Bilirubin Negative (NEGATIVE) 03/27/18 11:22 Urine Urobilinogen Normal mg/dL (0.2-1.0) 03/27/18 11:22 Ur Leukocyte Esterase 3+ Geno/uL (Negative) H 03/27/18 11:22 Urine WBC (Auto) 120 /hpf (0-5) H 03/27/18 11:22 Urine RBC (Auto) 3 /hpf (0-3) 03/27/18 11:22 Urine WBC Clumps (Auto) Many /hpf (NONE) H 03/25/18 20:12 Ur Squamous Epith Cells < 1 /hpf (0-5) 03/27/18 11:22 Urine Bacteria Rare (<OCC) 03/27/18 11:22 Stool Occult Blood Positive (NEGATIVE) H 03/26/18 16:30 Stool Leukocytes, Qual Negative (NEGATIVE) 03/26/18 16:30 CARSON & SPEP Interp See note 03/26/18 07:14 Serum Immunofixation Not detected (Not Detected) 03/26/18 07:14 KAY Nuclear Membr Pat Positive (Negative) H 03/26/18 07:14 Anti-HU Antibody Titer TNP 03/26/18 07:14 Anti-Hu Antibody Fluorescence noted (NEGATIVE) H 03/26/18 07:14 Anti-Hu Ab ([place]) Negative (NEGATIVE) 03/26/18 07:14 Anti-Yo Antibody Titer TNP 03/26/18 07:14 Anti-Yo Ab ([place]) Negative (NEGATIVE) 03/26/18 07:14 Anti-Yo IgG Ab (IFA) Fluorescence noted (NEGATIVE) H 03/26/18 07:14 RPR Nonreactive (NONREACTIVE) 03/26/18 07:14 Lyme IgG 18 kDa Band Nonreactive 03/26/18 07:14 Lyme IgG 23 kDa Band Nonreactive 03/26/18 07:14 Lyme IgG 28 kDa Band Nonreactive 03/26/18 07:14 Lyme IgG 30 kDa Band Nonreactive 03/26/18 07:14 Lyme IgG 39 kDa Band Nonreactive 03/26/18 07:14 Lyme IgG 41 kDa Band Reactive H 03/26/18 07:14 Lyme IgG 45 kDa Band Nonreactive 03/26/18 07:14 Lyme IgG 58 kDa Band Nonreactive 03/26/18 07:14 Lyme IgG 66 kDa Band Nonreactive 03/26/18 07:14 Lyme IgG 93 kDa Band Nonreactive 03/26/18 07:14 Lyme IgG W Blot Interp Negative (Negative) 03/26/18 07:14 Lyme Disease IgG Ab (IFA) Negative (NEGATIVE) 03/26/18 07:14 Lyme Disease IgM Ab Negative (NEGATIVE) 03/26/18 07:14 Lyme IgM 23 kDa Band Nonreactive 03/26/18 07:14 Lyme IgM 39 kDa Band Nonreactive 03/26/18 07:14 Lyme IgM 41 kDa Band Nonreactive 03/26/18 07:14 Lyme IgM W Blot Interp Negative (Negative) 03/26/18 07:14 C. difficile Ag & Toxin Negative (NEGATIVE) 03/26/18 16:30 - Hospital Course Hospital Course: Chief complaint: Syncopal attack. HPI: 62-year-old male with a history of ulcerative colitis, not taking his medications properly, adenocarcinoma of the prostate, and also severe orthostatic hypotension, and possible neuropathy, weight loss came to the emergency room with sudden onset of dizziness. Patient for the last 2-3 days not feeling well, he started having some weakness , especially upon standing up and walking and the dizziness. Patient went to work last night, and this morning he was not able to get out of the work he was feeling lightheaded, and nearly passing out. He called me this morning, and I advised him to come to the emergency room. In the emergency room patient was found to have frequent bowel movements, episodes of diarrhea, and also blood in the stools noted. He was also having mild discomfort in the lower abdominal region, no nausea vomiting. He has a good appetite. He denies any fever chills. He also having severe orthostatic hypotension noted in the emergency room. He denied any chest pain, no shortness of breath, no headache. No sore throat. No recent illness otherwise Patient was seen by neurologist for the orthostatic hypotension, diagnosed with the peripheral neuropathy, and also able to get immunoglobulin intravenously but still pending Past medical history: Ulcerative colitis, adenocarcinoma of the prostate, peripheral neuropathy orthostatic hypotension unclear etiology Allergy no known drug allergy Personal history: Non-smoker nonalcoholic Patient is working full-time , Mother had a history of liver cirrhosis Father had a history of lung cancer Review of system: 10 point review of system noted. No headache or visual symptoms. Dizziness noted, postural hypotension noted, chest pain negative, no shortness of breath, abdominal discomfort occasionally noted, recurrent blood in the stools noted and frequent bowel movements noted On examination: Vital signs stable. But severe orthostatic hypotension noted. Lying blood pressure systolic 110, standing systolic blood pressure is 70 Chest good air entry bilaterally regular heart sounds nontender abdominal pedal edema [employer] alert awake oriented 3 no functional neurological deficits Patient's labs reviewed Nonspecific Hemoglobin is 11.9 urinalysis showing evidence of 2+ protein, ketones positive, blood 2+, positive nitrates noted, WBC more than 28,000 with the LE positive many WBC clumps noted EKG showing evidence of a normal sinus rhythm, no ST-T changes noted No chest x-ray currently available No CAT scan of the abdomen available Assessment and recommendation: Patient is a 62-year-old male with a known history of ulcerative colitis, currently noncompliant with the medication came to the office with abdominal discomfort and also significant pyuria noted. Patient also having significant urinary discomfort. Blood in the stools noted. Rectal bleeding, possible underlying ulcerative colitis exacerbation. Urinary tract infection with severe sepsis cannot be ruled out Orthostatic hypotension secondary to worsening sepsis possible. Dehydration possible Peripheral neuropathy. We will start the patient on antibiotic Cipro and Flagyl, for possible urinary tract infection as well as colitis. Will get urine culture, and blood culture GI evaluation for possible colonoscopy Evaluation by neurology for orthostatic hypotension and polyneuropathy We will continue the IV fluid at this time, PPI. And will follow-up the patient Discussed with the family regarding the prognosis. Course in the hospital: Patient initially started on IV fluid. CT scan of the abdomen and pelvis done Neurologic, gastrointestinal evaluation was called. CAT scan of the abdomen and pelvis showing evidence of descending colonic, mild rectal wall thickening, compatible with the colitis. Bladder wall thickening with ectopic lesion secondary to possibly outlet obstruction of the chronic bladder obstruction and BPH. Cystitis possible. Few peripheral nodular densities in the inferior left lower lobe of the lungs noted. Nonspecific MRI of the brain no evidence of acute hemorrhage or infarct noted chronic changes noted nonspecific otherwise Gastrointestinal evaluation was done, suggestive of acute colitis. Patient was also having some rectal bleeding, associate with diarrhea. Symptoms most likely related to ulcerative colitis exacerbation. Patient was started on sulfasalazine. He did not tolerate much. He was having also vomiting and diarrhea. He was also started on Cipro and Flagyl. Later medication was changed into his oral medications. Patient started slight improvement. He wanted to go home. IV fluid was discontinued, patient still continues to have orthostasis. Patient had a multiple workup for connective tissue disease, neurologic evaluation was done by the neurologist. Patient will need to follow-up with neurologist as an outpatient also. Final diagnoses: Acute exacerbation of ulcerative colitis. Orthostatic hypotension dehydration. Peripheral neuropathy. Patient will need to follow-up in my office, neurologist, as well as gastrointestinal evaluation. Patient will need a surveillance colonoscopy also educated about that. He will continue antibiotic for at least 5 days to 7 days. We will follow the patient Discharge Exam - Head Exam Head Exam: ATRAUMATIC, NORMOCEPHALIC Discharge Plan - Follow Up Plan Condition: STABLE Disposition: HOME/ ROUTINE Instructions: Dehydration, Adult (DC) Referrals: Hector Reyes MD [Staff Provider] -
--- NOTE | 2018-03-30 07:49 | CP.PCM.PN ---
Subjective - Date & Time of Evaluation Date of Evaluation: 03/28/18 Time of Evaluation: 07:49 - Subjective Subjective: Patient is feeling somewhat tired week. Hacking cough noted. Also hiccups present, vomiting present, poor intake. Vital signs stable, but orthostatic positive No abdominal tenderness noted no pedal edema Assessment and recommendation: 62-year-old male with a ulcerative colitis, exact acute exacerbation, and associate with a possible urinary tract infection, improving at this time. We will continue the current treatment. IV fluid will follow the patient Objective - Vital Signs/Intake and Output Vital Signs (last 24 hours): Temp Pulse Resp BP Pulse Ox 98.5 F 77 20 145/85 98 03/29/18 16:43 03/29/18 17:30 03/29/18 16:43 03/29/18 16:43 03/29/18 16:43 - Labs Labs: 03/29/18 06:23 03/29/18 06:23
== END 2018-03-29 20:21 | disposition home or self-care (01) | DRG 386 ==
LOC: C.ER 09:43 → C.9E 12:44 → C.6T 15:05
PROVIDERS: ADMIT Internal Medicine; ATTEND Internal Medicine
DX: K51.911 Ulcerative colitis, unspecified with rectal bleeding (principal); N39.0 Urinary tract infection, site not specified; R64 Cachexia; N13.8 Other obstructive and reflux uropathy; I95.1 Orthostatic hypotension; E86.0 Dehydration; G62.9 Polyneuropathy, unspecified; Z91.14 Patient's other noncompliance with medication regimen; Z85.46 Personal history of malignant neoplasm of prostate; Z87.891 Personal history of nicotine dependence; Z80.1 Family history of malignant neoplasm of trachea, bronchus and lung; N40.1 Benign prostatic hyperplasia with lower urinary tract symptoms